=== PATIENT | male | born 2005 | race African-American/Black ===

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

== ENCOUNTER 2023-04-19 10:39 | Emergency (ER) | payer OTHER ==
[~2023-04-19] VITALS: Ht 175.3 cm; Wt 109.1 kg
[2023-04-19 10:42] VITALS: TEMP 97.9
[2023-04-19] MEDS ORDERED: IBUPROFEN 600 MG TABLET PO ONE (12:30)
[2023-04-19] MEDS ORDERED: BACITRACIN 0.9 GM PACKET OINTMENT TP ONE (13:33)
[2023-04-19 13:35] VITALS: BP 133/80; PULSE 89; RESP 16
== END 2023-04-19 13:36 | disposition home or self-care (01) ==
LOC: EMS 10:41
DX: S31.159A Open bite of abdominal wall, unspecified quadrant without penetration into peritoneal cavity, initial encounter (principal); M20.5X1 Other deformities of toe(s) (acquired), right foot; F12.90 Cannabis use, unspecified, uncomplicated; W54.0XXA Bitten by dog, initial encounter; Y93.89 Activity, other specified; Y92.89 Other specified places as the place of occurrence of the external cause; Y99.8 Other external cause status
CPT/HCPCS: 99283

== ENCOUNTER 2023-09-03 07:20 | Emergency (ER) | payer OTHER ==
[~2023-09-03] VITALS: Ht 175.3 cm; Wt 97.7 kg
[~2023-09-03 07:20] MED LIST changes: -CEPH-558 PO
[2023-09-03 07:21] VITALS: BP 132/83; PULSE 76; RESP 18; TEMP 97.7
[2023-09-03] MEDS: AMOXICILLIN TRIHYDRATE 250 MG CAPSULE PO ONE (09:14)
[2023-09-03] MEDS: IBUPROFEN 600 MG TABLET PO ONE (09:15)
[2023-09-03] MEDS ORDERED: IBUP-1492 PO (09:20)
[2023-09-03] MEDS ORDERED: AMOX500C2 PO (09:20)
== END 2023-09-03 10:00 | disposition home or self-care (01) ==
LOC: EMS 07:20
DX: H66.91 Otitis media, unspecified, right ear (principal); F12.90 Cannabis use, unspecified, uncomplicated
CPT/HCPCS: 99283

== ENCOUNTER 2023-11-22 14:55 | Emergency (ER) | payer OTHER ==
[~2023-11-22] VITALS: Ht 172.7 cm; Wt 118.2 kg
[~2023-11-22 14:55] MED LIST changes: -ACET-66 PO; +AMOX500C2 PO; +IBUP-1492 PO; -IBUP-1554 PO
[2023-11-22 15:00] VITALS: TEMP 98
[2023-11-22] MEDS: IBUPROFEN 600 MG TABLET PO ONE (16:02)
[2023-11-22] MEDS: CEPHALEXIN MONOHYDRATE 500 MG CAPSULE PO ONE (16:02)
[2023-11-22] MEDS: ACETAMINOPHEN/CODEINE 300-30 MG TABLET PO ONE (16:02)
[2023-11-22] MEDS: LIDOCAINE 1% 10 ML VIAL SQ ONE (16:02)
[2023-11-22] MEDS: DOXYCYCLINE HYCLATE 100 MG TABLET PO ONE (16:02)
[2023-11-22 16:44] VITALS: BP 116/68; PULSE 88; RESP 18; O2SAT 99
[2023-11-22] MEDS ORDERED: IBUP-1554 PO (17:04)
[2023-11-22] MEDS ORDERED: ACET-2080 PO (17:04)
[2023-11-22] MEDS ORDERED: CEPH-558 PO (17:04)
== END 2023-11-22 18:16 | disposition home or self-care (01) ==
LOC: EMS 14:59
DX: L05.01 Pilonidal cyst with abscess (principal); F12.90 Cannabis use, unspecified, uncomplicated
CPT/HCPCS: 99284; 10060; J3490

== ENCOUNTER 2023-11-27 06:26 | Emergency (ER) | payer OTHER ==
[~2023-11-27] VITALS: Ht 172.7 cm; Wt 118.2 kg
[~2023-11-27 06:26] MED LIST changes: +ACET-2080 PO; -AMOX500C2 PO; +CEPH-558 PO; -IBUP-1492 PO; +IBUP-1554 PO
[2023-11-27 06:37] VITALS: TEMP 98.6
[2023-11-27 07:00] VITALS: BP 135/86; PULSE 80; RESP 18; O2SAT 99
== END 2023-11-27 07:22 | disposition home or self-care (01) ==
LOC: EMS 06:26
DX: L05.01 Pilonidal cyst with abscess (principal); F12.90 Cannabis use, unspecified, uncomplicated
CPT/HCPCS: 99282; Z7502

== ENCOUNTER 2023-12-04 07:20 | Emergency (ER) | payer OTHER ==
[~2023-12-04] VITALS: Ht 175.3 cm; Wt 100.0 kg
[2023-12-04 07:23] VITALS: BP 122/79; PULSE 66; RESP 18; TEMP 97.8; O2SAT 98
== END 2023-12-04 08:56 | disposition home or self-care (01) ==
LOC: EMS 07:20
DX: L05.01 Pilonidal cyst with abscess (principal); F12.90 Cannabis use, unspecified, uncomplicated
CPT/HCPCS: 99281; Z7502

== ENCOUNTER 2023-12-13 09:00 | Emergency (ER) | payer OTHER ==
[~2023-12-13] VITALS: Ht 177.8 cm; Wt 118.2 kg
[2023-12-13 09:04] VITALS: BP 120/74; PULSE 78; RESP 16; TEMP 98.3; O2SAT 98
== END 2023-12-13 09:54 | disposition home or self-care (01) ==
LOC: EMS 09:03
DX: L05.01 Pilonidal cyst with abscess (principal); Z48.00 Encounter for change or removal of nonsurgical wound dressing
CPT/HCPCS: 99282; Z7502